=== PATIENT | female | born 1960 | race Caucasian/White ===

== ENCOUNTER 2018-11-02 09:00 | Emergency (ER) | payer OTHER, BC ==
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
[2018-11-02 10:10] LABS: PLATELET COUNT, AUTOMATED 226 K/uL (150-450)
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
[2018-11-02] MEDS ORDERED: IOPAMIDOL 76% 100 ML INFUS BTL 100 ML ONE (10:37)
[2018-11-02 11:00] VITALS: BP 129/89
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
[2018-11-02] MEDS ORDERED: LOR5/325 PO (11:34)
== END 2018-11-02 11:41 | disposition home or self-care (01) ==
LOC: ER 10:05
DX: S00.81XA Abrasion of other part of head, initial encounter (principal); S30.1XXA Contusion of abdominal wall, initial encounter
CPT/HCPCS: 70486; 71046; 71100; 74177; 81001; 85025; 99284; Q9967

== ENCOUNTER → 2018-11-02 | Outpatient (CLI) | payer OTHER, BC ==
[~2018-11-02] MED LIST: LOR5/325 PO
== END ==
LOC: AMB 08:29
PROVIDERS: ATTEND Nurse Practitioner
DX: R10.32 Left lower quadrant pain (principal); M54.2 Cervicalgia; V49.60XA Unspecified car occupant injured in collision with unspecified motor vehicles in traffic accident, initial encounter
CPT/HCPCS: A0425; A0427

== ENCOUNTER → 2019-01-01 | Outpatient (CLI) | payer OTHER, BC ==
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
== END ==
LOC: CT 00:39
PROVIDERS: ATTEND Nurse Practitioner Family
DX: S06.0X9A Concussion with loss of consciousness of unspecified duration, initial encounter (principal); R51 Headache; S26.90XA Unspecified injury of heart, unspecified with or without hemopericardium, initial encounter; F07.81 Postconcussional syndrome
CPT/HCPCS: 70450

== ENCOUNTER → 2019-01-01 | Outpatient (CLI) | payer OTHER, BC | LOC: AUD 11:00 | PROVIDERS: ATTEND Nurse Practitioner Family | DX: H91.93 Unspecified hearing loss, bilateral (principal) | CPT/HCPCS: 92557; 92570 ==